=== PATIENT | female | born 1975 | race Caucasian/White ===

== ENCOUNTER 2025-05-20 07:33 | Day surgery (SDC) | payer BC ==
[~2025-05-20 07:33] MED LIST: Sodium Chloride 0.9% 10 ML Syringe FLUSH PRN; Sodium Chloride 0.9% 10 ML Syringe FLUSH SCH
[2025-05-20] MEDS ORDERED: Midazolam 1 MG/ML 2 ML SDV ONE (08:02)
[2025-05-20] MEDS ORDERED: Lactated Ringers 1,000 ML ONE (08:02)
[2025-05-20] MEDS ORDERED: propofoL 500 MG/50 ML 50 ML ONE (08:02)
[2025-05-20] MEDS ORDERED: fentaNYL 100 MCG/2 ML SDV IVPUSH PRN (08:15)
[2025-05-20] MEDS ORDERED: Ondansetron 4 MG/2 ML SDV IVPUSH PRN (08:15)
[2025-05-20] MEDS: Lactated Ringers 1,000 ML IV SCH (08:35)
[2025-05-20] MEDS: Clindamycin Phosphate in D5W 900 MG in Premix Bag 1 BAG IV ONE (09:00)
[2025-05-20] MEDS: oxyCODONE ER 10 MG TAB.ER PO SCH (09:00)
[2025-05-20 09:08] LABS: INR 0.97
[2025-05-20] MEDS ORDERED: Ondansetron 4 MG/2 ML SDV ONE (09:13)
[2025-05-20] MEDS: Morphine 8 MG, EPINEPHrine 0.3 MG, Ketorolac 30 MG, Sodium Chloride 0.9% 7.9 ML PRN (10:21)
== END 2025-05-20 14:28 | disposition home or self-care (01) ==
LOC: JD.SDS 07:33
PROVIDERS: ATTEND Orthopaedic Surgery
DX: M16.12 Unilateral primary osteoarthritis, left hip (principal); I10 Essential (primary) hypertension; E03.9 Hypothyroidism, unspecified; Z88.8 Allergy status to other drugs, medicaments and biological substances; Z79.01 Long term (current) use of anticoagulants; Z79.899 Other long term (current) drug therapy; Z79.890 Hormone replacement therapy
CPT/HCPCS: 0055T; 27130; 36415; 73501; 85610; 85730; 86850; 86900; 86901; 97116; 97161; A9270; C1776; J0169; J0736; J1885; J2250; J2272; J2405; J2704; J3373; J7120; 01214